=== PATIENT | male | born 1955 | race Caucasian/White ===

== ENCOUNTER → 2024-08-21 | Day surgery (SDC) | payer MEDICARE, MEDICAID ==
[~2024-08-21] VITALS: Ht 160 cm; Wt 74.4 kg
[~2024-08-21] MED LIST: ALOG1TAB8 PO; ATOR40TA70 PO; BALANCED SALT IRRIG SOLN 15ML ONE; BALANCED SALT IRRIG SOLN COMB1 500ML OP NR; CYCLOPENTOLATE HCL 1% OPHTH DROPS 2ML RIGHTEYE ONE; ENAL2.5T39 PO; ERGO1250 PO; FENO145 PO; FENTANYL CITRATE/PF 50MCG/ML 5ML VIAL ONE; HYALURONATE SODIUM 10MG/ML 0.85ML SYRINGE IO ONE; INSLIS SUBCUT; INSU100I28 SQ; LIDOCAINE HCL/EPINEPHRINE 1%-EPI 1:100,000 20ML VIAL ONE; MIDAZOLAM HCL 2 MG/2 ML VIAL ONE; PHENYLEPHRINE HCL 10% OPHTH DROPS 5ML RIGHTEYE ONE; SODIUM CHLORIDE 0.9% 1,000 ML IV SCH; TROPICAMIDE 1% OPHTH DROPS 15ML RIGHTEYE ONE; TRYPAN BLUE 0.5 ML DISP.SYRIN IO ONE
== END | disposition home or self-care (01) ==
LOC: OR 14:41
PROVIDERS: ATTEND Ophthalmology
DX: E11.36 Type 2 diabetes mellitus with diabetic cataract (principal); H25.89 Other age-related cataract; E78.5 Hyperlipidemia, unspecified; I10 Essential (primary) hypertension; Z79.84 Long term (current) use of oral hypoglycemic drugs; Z79.899 Other long term (current) drug therapy; Z98.890 Other specified postprocedural states
CPT/HCPCS: 66984; 82962; V2632; J3010; J3490 ×2; J2250; Q9957